=== PATIENT | male | born 1960 | race Caucasian/White ===

== ENCOUNTER 2019-02-16 12:49 | Emergency (ER) | payer MEDICAID, OTHER ==
[2019-02-16] MEDS ORDERED: Acetaminophen/oxyCODONE 325-5 MG Tab PO ONE (13:19)
--- NOTE | 2019-02-16 13:21 | EDM.PDOC ---
ED HPI GENERAL MEDICAL PROBLEM - General Chief Complaint: Upper Extremity Injury/Pain Stated Complaint: R THUMB INJURY Time Seen by Provider: 02/16/19 13:20 Source of Information: Reports: Patient History Limitations: Reports: No Limitations - History of Present Illness INITIAL COMMENTS - FREE TEXT/NARRATIVE: pt got hisrt thumb caught between 2 boards. 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 ) Skin: Reports: No Symptoms Neurological: Reports: No Symptoms ED EXAM, GENERAL - Physical Exam Exam: See Below Free Text/Narrative:: pt caught his rt thumb between 2 boards. He had alot of bleeding at first. Exam Limited By: No Limitations General Appearance: Alert, Anxious Extremities: Other (pt has avulsed the rt thumb tip rolling the soft tissue out from under the nail. An xray was done on the thumb which showed a fracture of the tuft of the finger. ) Course - Vital Signs Last Recorded V/S: Last Vital Signs Temp 35.6 C 02/16/19 12:57 Pulse 57 L 02/16/19 14:27 Resp 16 02/16/19 14:27 BP 143/84 H 02/16/19 14:27 Pulse Ox 96 02/16/19 14:27 - Orders/Labs/Meds Meds: Medications Discontinued Medications Generic Name Dose Route Start Last Admin Trade Name Heidy PRN Reason Stop Dose Admin Oxycodone/Acetaminophen 1 tab 02/16/19 13:19 02/16/19 13:33 Percocet 325-5 Mg PO 02/16/19 13:20 1 tab ONETIME ONE Administration - Re-Assessments/Exams Free Text/Narrative Re-Assessment/Exam: 02/16/19 16:31 Dr Harrison saw the pt and sutured the thumb. Departure - Departure Time of Disposition: 16:25 Disposition: Home, Self-Care 01 Condition: Fair Clinical Impression: Injury of thumb, right - Discharge Information Instructions: Thumb Fracture, Laceration Care, Adult, [id number] Referrals: PCP,None [Primary Care Provider] - Forms: ED Department Discharge Care Plan Goals: Pt was seen by Dr Blackwell and he sutured the tip of the thumb. There is a fracture of the tuft of the thumb. He will give instructions to the pt and will see the pt in follow up. norco 5/325 q6h prn for pain, keflex 500mg tid for 1 week, keep appt in follow up with Dr Bueno. Sepsis Event Note - Evaluation Sepsis Screening Result: No Definite Risk - Focused Exam Date Exam was Performed: 02/18/19 Time Exam was Performed: 18:23
--- NOTE | 2019-02-16 13:51 | CRLCR ---
INDICATION: Crush injury COMPARISON: none TECHNIQUE: Three-view right thumb FINDINGS: There is a comminuted nondisplaced fracture involving the tuft of the right 1st distal phalanx. The interphalangeal joint and proximal phalanx remain intact. The 1st MCP joint appears intact. IMPRESSION: Comminuted nondisplaced fracture identified involving the tuft of the right 1st distal phalanx Dictated by Lino Covarrubias MD @ 02/16/2019 1:50:26 PM Dictated by: Lino Covarrubias MD @ 02/16/2019 13:50:33 (Electronically Signed)
[2019-02-16 14:28] VITALS: BP 143/84; PULSE 57
--- NOTE | 2019-03-15 11:35 | PCM.CONS ---
H&P History of Present Illness - General Date of Service: 02/16/19 Admit Problem/Dx: Crush injury left thumb with tuft fracture and laceration Source of Information: Patient History Limitations: Reports: No Limitations - History of Present Illness Initial Comments - Free Text/Narative: 58 year old male presents to the ED with crush injury to the tip of the left thumb. X-ray reveals a fracture of the tuft of the distal phalanx. Onset of Symptoms: Reports: Today Duration of Symptoms: Reports: Hour(s): Location: Reports: Upper Extremity, Right, Other (Right thumb) Quality: Reports: Sharp, Stabbing Severity: Moderate Improves with: Reports: Immobilization Worsens with: Reports: Movement Associated Symptoms: Reports: No Other Symptoms Right Finger-Thumb Pain Score (Numeric/FACES): 1 - Related Data Allergies/Adverse Reactions: Allergies Allergy/AdvReac Type Severity Reaction Status Date / Time No Known Allergies Allergy Verified 02/16/19 13:02 Home Medications: Home Meds lisinopriL [Prinivil] 10 mg PO DAILY 02/16/19 [History] Ibuprofen 800 mg PO Q6HR PRN 02/23/19 [History] cephALEXin [Keflex] 500 mg PO Q8H 02/23/19 [History] Past Medical History - Past Health History Medical/Surgical History: Denies Medical/Surgical History Cardiovascular History: Reports: Hypertension Musculoskeletal History: Reports: Other (See Below) 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 Exam - Exam Exam: See Below - Vital Signs Vital Signs: Last Vital Signs Temp 35.6 C 02/16/19 12:57 Pulse 57 L 02/16/19 14:27 Resp 16 02/16/19 14:27 BP 143/84 H 02/16/19 14:27 Pulse Ox 96 02/16/19 14:27 Weight: 76.9 kg - Exam General: Alert, Oriented, 4 Extremities: Other (laceration at distal end of thumb that follow the contour ot the end of the nail ) Skin: Warm, Dry, Wound Neurological: Reflexes Equal Bilateral, Other (sensation intact) Neuro Extensive - Mental Status: Alert, Oriented x3 Psychiatric: Alert, Normal Affect, Normal Mood Physical Exam Comments:: Laceration extends into fracture, nail bed intact Sepsis Event Note - Evaluation Sepsis Screening Result: No Definite Risk Consult PN Assessment/Plan Procedures: Procedures EMERGENCY DEPT VISIT (09/09/14) IMMUNIZATION ADMIN (09/09/14) TDAP VACCINE 7 YRS/> IM (09/09/14) X-RAY EXAM OF FINGER(S) (02/16/19) (1) Open fracture of tuft of distal phalanx of thumb SNOMED Code(s): 141290875 Code(s): S62.523B - DISP FX OF DISTAL PHALANX OF UNSP THUMB, INIT FOR OPN FX (2) Injury of thumb, right SNOMED Code(s): 980481433 Code(s): S69.91XA - UNSP INJURY OF RIGHT WRIST, HAND AND FINGER(S), INIT ENCNTR Comment: crush injury with fracture of tuft Qualifiers: Encounter type: initial encounter Qualified Code(s): S69.91XA - Unspecified injury of right wrist, hand and finger(s), initial encounter Problem List Initiated/Reviewed/Updated: Yes Plan: Wound irrigated, laceration closed, finger dressed, discharge to home with pain medication and antibiotic for one week, follow up for wound check in one week.
--- NOTE | 2019-03-15 17:30 | OR ---
DATE OF PROCEDURE: 02/16/2019 SURGEON: Garrison Blackwell MD PREOPERATIVE DIAGNOSIS: Crush injury, right thumb, with laceration fingertip and open fracture of the tuft of distal phalanx. POSTOPERATIVE DIAGNOSIS: Crush injury, right thumb, with laceration fingertip and open fracture of the tuft of distal phalanx. PROCEDURE: Irrigation right thumb wound and primary closure. ANESTHESIA: Digital block. INDICATIONS: Mr. Savage is a 58-year-old gentleman who sustained a crush injury to the tip of his right thumb earlier today. He presented to the emergency room with laceration over the tip of the thumb and fracture of the distal phalanx. I was asked by the ED physician to consult. Examination reveals approximately a 1 cm laceration over the tip of the thumb following the contour of the nail measuring approximately 1 cm. The fracture extends down beneath the nail to the distal phalanx and tuft fracture. Nail bed is intact. Sensation of the distal thumb is intact with some mild patchy light touch loss. DESCRIPTION OF PROCEDURE: After supplementing the digital block with Marcaine, the finger was irrigated and further inspected. There was no evidence of any foreign material or gross contamination. The tuft fracture is not treated and a fragment was left in place. The skin was then closed with 3-0 nylon in a simple fashion placing several of the sutures through the nail to use this as a stabilizing base. This also decompressed a small subungual hematoma. No soft tissue loss was present. The thumb was then dressed and I have plans for the patient to be discharged to home with pain medication, antibiotic, and follow up in 1 week for wound check. Garrison Blackwell MD /[id number]
== END 2019-02-16 16:42 | disposition home or self-care (01) ==
LOC: JP.ED 12:49
DX: S69.91XA Unspecified injury of right wrist, hand and finger(s), initial encounter (principal); W23.0XXA Caught, crushed, jammed, or pinched between moving objects, initial encounter
CPT/HCPCS: 12002; 73140; 99283; A9270